=== PATIENT | male | born 1945 | race Caucasian/White ===

== ENCOUNTER → 2017-09-19 | Day surgery (SDC) | payer OTHER ==
[2017-09-18 12:26] LABS: BASOPHILS # (AUTO) 0.1 (0.0-0.1); BASOPHILS % 0.8 % (0.0-1.0); EOSINOPHILS # (AUTO) 0.2 (0.0-0.4); EOSINOPHILS % 3.7 % (0.0-6.0); HEMATOCRIT 38.9 % (38.2-49.6); HEMOGLOBIN 13.3 g/dL (14.0-18.0); LYMPHOCYTES # (AUTO) 1.2 (1.0-3.2); LYMPHOCYTES % 19.5 % (18.0-39.1); MEAN CORPUSCULAR HEMOGLOBIN 30.7 pg (28-32); MEAN CORPUSCULAR HGB CONC 34.2 g/dL (31-35); MEAN CORPUSCULAR VOLUME 89.8 fL (81-99); MONOCYTES # (AUTO) 0.6 (0.2-0.8); MONOCYTES % 9.5 % (4.4-11.3); NEUTROPHILS # (AUTO) 3.9 (2.1-6.9); NEUTROPHILS % 66.2 % (38.7-80.0); PLATELET COUNT 189 x10e3/uL (140-360); RED BLOOD COUNT 4.33 x10e6/uL (4.3-5.7)
[2017-09-18 12:29] LABS: INR 0.96; PROTHROMBIN TIME 13.3 seconds (11.9-14.5)
[2017-09-18 12:44] LABS: ALBUMIN 3.8 g/dL (3.5-5.0); ALBUMIN/GLOBULIN RATIO 1.1 (0.8-2.0); ANION GAP 11.7 mmol/L (8-16); CALCIUM 9.3 mg/dL (8.4-10.2); CHOL/HDL RATIO 3.5 (3.9-4.7); CREATININE, SERUM 1.23 mg/dL (0.72-1.25); POTASSIUM 3.7 mmol/L (3.5-5.1)
[~2017-09-19] VITALS: Ht 180.3 cm; Wt 152.4 kg
[~2017-09-19] MED LIST: ASPIRIN81 MG PO; ATORVASTATIN CA20 MG PO; DOXAZOSIN MESYLA4 MG PO; FELODIPINE ER5 MG PO; FENTANYL CITRATE/PF 100MCG/2 ML INJ ONE; HEPARIN SOD (PORCINE) 1000 UNIT/ML 30ML ONE; HEPARIN SOD/SOD CHLORIDE 2,000 ML ONE; HYDRALAZINE HCL25 MG PO; IOPAMIDOL 370 MG/ML 200 ML INFUS..BTL INJ ONE; LASIX20 MG PO; LIDOCAINE HCL 2% LOCAL 20 ML VIAL ONE; LISINOPRIL10 MG PO; MELOXICAM7.5 MG PO; METOPROLOL SUC100 MG PO; MIDAZOLAM HCL 2 MG/2 ML VIAL ONE; NITROGLYCERIN/D5W 200 MCG/ML 250 ML ONE; SODIUM CHLORIDE 0.9% 1000ML 1,000 ML ONE; VERAPAMIL HCL 2.5 MG/ML 2 ML VIAL ONE
--- NOTE | 2017-09-19 15:13 | Operative Report ---
DATE OF PROCEDURE: September 19, 2017 PROCEDURE INDICATION: Chest pain, dyspnea on exertion concerning for unstable angina pectoris CCS III, NYHA III, with new diagnosis of heart failure, LVEF 42% on abnormal stress test with apical ischemia and inferior nontransmural scar. PROCEDURE PERFORMED 1. Left heart catheterization. 2. Selective coronary angiography x2. 3. Right radial transradial band hemostasis. PROCEDURE COMPLICATIONS: None. ESTIMATED BLOOD LOSS: 5 mL. PROCEDURE SUMMARY: After consent was obtained, patient was prepped and draped in a sterile fashion, and the right radial site was locally infiltrated with 2% lidocaine. Access was obtained, and a 5-Algerian outer-diameter Slender sheath was advanced over a wire. Verapamil 2.5 mg, 300 mcg of nitroglycerin and 3000 units of heparin were administered IV. Cardiac catheterization was performed with a universal 5-Algerian TIG catheter advanced over a J wire. The following findings were noted: 1. LV pressure 152/14 with end-diastolic pressure of 23. 2. Aortic pressure was 150/82. 3. No left ventriculogram was performed. 4. Left main with luminal irregularities, large caliber, gives off an LAD and a circumflex. 5. The LAD, large in caliber, has mid 30% stenosis, distal 40% stenosis, and gives 2 diagonals and multiple septal perforators of small caliber as it courses to the apex where it wraps around and ends. 6. The circumflex has luminal irregularities within the vessel itself. It gives a 1st obtuse marginal of small caliber with 30% proximal stenosis and a 2nd obtuse marginal with luminal irregularities and a 3rd obtuse marginal with 40% tubular stenosis and 2 left posterolateral branches. 7. The right coronary artery is a dominant vessel, gives a conus branch proximally, 2 RV marginals in the midportion, in between which there is 40% stenosis of the RCA. Distal RCA has 30% stenosis. The terminal branches of the RCA are an RPDA of small caliber with 30% proximal stenosis and an RPLV with small caliber and luminal irregularities. CONCLUSION: Nonischemic cardiomyopathy, jeox-jx-[id number] multivessel coronary artery disease, mildly elevated left ventricular end-diastolic pressure with left ventricular pressures 152/14 with end-diastolic pressure of 23 and aortic pressure 150/82. RECOMMENDATIONS: Uptitrate diuretics in the clinic, gradually transition to highest possible tolerated dose of beta alejandra and MADELINE inhibitor, and adjust other blood pressure medications accordingly. Cardiac rehabilitations will be considered as outpatient and weight loss advised. Wean TR band. Discharge later today if no complications arise. Job#: [id number] DARLENE
== END | disposition home or self-care (01) ==
LOC: CATH LAB 08:35
PROVIDERS: ATTEND Internal Medicine Cardiovascular Disease
DX: I25.119 Atherosclerotic heart disease of native coronary artery with unspecified angina pectoris (principal); I42.8 Other cardiomyopathies; R94.39 Abnormal result of other cardiovascular function study; I10 Essential (primary) hypertension; G47.33 Obstructive sleep apnea (adult) (pediatric); E66.9 Obesity, unspecified; I89.0 Lymphedema, not elsewhere classified; Z01.810 Encounter for preprocedural cardiovascular examination; Z01.812 Encounter for preprocedural laboratory examination; Z68.42 Body mass index [BMI] 45.0-49.9, adult; Z87.891 Personal history of nicotine dependence; Z90.2 Acquired absence of lung [part of]
CPT/HCPCS: 36415; 80053; 80061; 85025; 85610; 93005; 93458; C1887; J1644; J2001; J2250; J7030; Q9967; 36140

== ENCOUNTER 2018-05-09 17:25 | Inpatient (IN) | payer MEDICARE, OTHER ==
[~2018-05-09] VITALS: Ht 180.3 cm; Wt 140.2 kg
[~2018-05-09 17:25] MED LIST changes: -FENTANYL CITRATE/PF 100MCG/2 ML INJ ONE; -HEPARIN SOD (PORCINE) 1000 UNIT/ML 30ML ONE; -HEPARIN SOD/SOD CHLORIDE 2,000 ML ONE; -IOPAMIDOL 370 MG/ML 200 ML INFUS..BTL INJ ONE; -LIDOCAINE HCL 2% LOCAL 20 ML VIAL ONE; -MIDAZOLAM HCL 2 MG/2 ML VIAL ONE; -NITROGLYCERIN/D5W 200 MCG/ML 250 ML ONE; -SODIUM CHLORIDE 0.9% 1000ML 1,000 ML ONE; -VERAPAMIL HCL 2.5 MG/ML 2 ML VIAL ONE
[2018-05-09 18:50] LABS: BASOPHILS # (AUTO) 0.1 (0.0-0.1); BASOPHILS % 0.7 % (0.0-1.0); EOSINOPHILS # (AUTO) 0.2 (0.0-0.4); EOSINOPHILS % 3.1 % (0.0-6.0); HEMATOCRIT 41.6 % (38.2-49.6); HEMOGLOBIN 14.4 g/dL (14.0-18.0); LYMPHOCYTES # (AUTO) 1.3 (1.0-3.2); LYMPHOCYTES % 17.9 % (18.0-39.1); MEAN CORPUSCULAR HEMOGLOBIN 30.8 pg (28-32); MEAN CORPUSCULAR HGB CONC 34.6 g/dL (31-35); MEAN CORPUSCULAR VOLUME 88.9 fL (81-99); MONOCYTES # (AUTO) 0.8 (0.2-0.8); NEUTROPHILS # (AUTO) 4.7 (2.1-6.9); PLATELET COUNT 202 x10e3/uL (140-360); RED BLOOD COUNT 4.68 x10e6/uL (4.3-5.7); RED CELL DISTRIBUTION WIDTH 13.6 % (11.7-14.4)
[2018-05-09 19:06] LABS: ALBUMIN 4.5 g/dL (3.5-5.0); ALBUMIN/GLOBULIN RATIO 1.2 (0.8-2.0); ANION GAP 19.1 mmol/L (8-16); CALCIUM 9.8 mg/dL (8.4-10.2); CREATININE, SERUM 3.32 mg/dL (0.72-1.25); POTASSIUM 4.1 mmol/L (3.5-5.1)
[2018-05-09 20:35] LABS: BILIRUBIN,URINE NEGATIVE (NEGATIVE); CLARITY,URINE CLEAR (CLEAR); COLOR,URINE YELLOW (YELLOW); KETONES,URINE NEGATIVE (NEGATIVE); LEUKOCYTE ESTERASE ,URINE NEGATIVE (NEGATIVE); NITRITE,URINE NEGATIVE (NEGATIVE); PROTEIN,URINE DIPSTICK NEGATIVE (NEGATIVE); URINE UROBILINOGEN 0.2 mg/dL (0.2 - 1)
[2018-05-09] MEDS ORDERED: SODIUM CHLORIDE 0.9% 1000ML 1,000 ML IV SCH (20:36)
--- NOTE | 2018-05-09 20:40 | Diagnostic Imaging Report ---
EXAMINATION: CHEST SINGLE (PORTABLE) INDICATION: H/O CHF, RENAL INSUFF DUE TO INCR DIURETIC COMPARISON: 07/24/2017. FINDINGS: TUBES and LINES: None. LUNGS: Mild prominence of the pulmonary vasculature with redistribution bilaterally. PLEURA: No pleural effusion or pneumothorax. HEART AND MEDIASTINUM: The cardiac silhouette is moderately enlarged. BONES AND SOFT TISSUES: No acute osseous lesion. UPPER ABDOMEN: No free air under the diaphragm. IMPRESSION: Mild bilateral pulmonary venous congestion. Signed by: Dr. Ruben Miramontes M.D. on 05/09/2018 8:36 PM
[2018-05-09 20:46] LABS: EPITHELIAL CELLS,URINE FEW /LPF; MUCUS,URINE MODERATE (RARE); RBC,URINE 0-5 /HPF (0-5)
[2018-05-09] MEDS ORDERED: SODIUM CHLORIDE 0.9% 1000ML 1,000 ML IV ONE (20:52)
[2018-05-09 22:00] VITALS: BP 138/77
[2018-05-09 22:15] VITALS: BP 138/77
[2018-05-09] MEDS ORDERED: METOLAZONE5 MG PO (22:54)
[2018-05-09] MEDS ORDERED: OXYBUTYNIN CHLOR5 MG PO (22:54)
[2018-05-09] MEDS ORDERED: SIMVASTATIN40 MG PO (22:54)
[2018-05-09] MEDS ORDERED: CARVEDILOL12.5 MG PO (22:54)
[2018-05-09] MEDS ORDERED: SPIRONOLACTONE25 MG PO (22:54)
[2018-05-10] VITALS (7 sets, daily range): BP systolic 122–170; BP diastolic 59–76
[2018-05-10 05:22] LABS: BASOPHILS % 0.5 % (0.0-1.0); EOSINOPHILS # (AUTO) 0.2 (0.0-0.4); EOSINOPHILS % 2.9 % (0.0-6.0); HEMATOCRIT 37.8 % (38.2-49.6); HEMOGLOBIN 12.9 g/dL (14.0-18.0); LYMPHOCYTES # (AUTO) 1.2 (1.0-3.2); LYMPHOCYTES % 17.8 % (18.0-39.1); MEAN CORPUSCULAR HEMOGLOBIN 30.3 pg (28-32); MEAN CORPUSCULAR HGB CONC 34.1 g/dL (31-35); MEAN CORPUSCULAR VOLUME 88.7 fL (81-99); MONOCYTES # (AUTO) 0.8 (0.2-0.8); MONOCYTES % 11.7 % (4.4-11.3); NEUTROPHILS # (AUTO) 4.4 (2.1-6.9); NEUTROPHILS % 66.8 % (38.7-80.0); PLATELET COUNT 163 x10e3/uL (140-360); RED BLOOD COUNT 4.26 x10e6/uL (4.3-5.7); RED CELL DISTRIBUTION WIDTH 13.4 % (11.7-14.4)
[2018-05-10 05:52] LABS: ANION GAP 17.4 mmol/L (8-16); CALCIUM 9.3 mg/dL (8.4-10.2); CREATININE, SERUM 2.75 mg/dL (0.72-1.25); POTASSIUM 3.4 mmol/L (3.5-5.1)
[2018-05-10] MEDS ORDERED: ACETAMINOPHEN 325 MG TAB PO PRN (08:15)
--- NOTE | 2018-05-10 08:48 | History and Physical ---
CHIEF COMPLAINT: Abnormal kidney blood test in PCP's, my office. HISTORY OF PRESENT ILLNESS: A 72-year-old pleasant white male with a past medical history of multiple medical problems was admitted at [facility] last night with the above complaints. The patient was seen in my office a couple of days back for hospital followup from [facility] for CHF exacerbation. When the patient came to my office, the patient was feeling generalized weakness, fatigue. Apparently, the patient was admitted at [facility] for dyspnea on exertion. The patient was diagnosed with CHF exacerbation. The patient was discharged from [facility] last week on Lasix 40 mg p.o. b.i.d., Aldactone 25 mg p.o. daily and metolazone 5 mg p.o. daily. I did routine blood tests in my office a couple of days back when the patient came for hospital followup. I got the blood test report yesterday, which showed the patient's creatinine was 2.3. The patient's baseline creatinine done last month in my office was 1.1. Hence, the patient was referred to [facility] for acute renal failure. In the emergency room, the patient was seen by emergency room doctor, Dr. Lepe, and the patient was admitted in the hospital for further workup and treatment. At present, the patient is laying comfortably in bed. No apparent distress. No chest pain. No shortness of breath. No nausea, vomiting or diarrhea. No abdominal pain, loss of consciousness or palpitations. No headaches. No hematemesis. No melena. No hematuria or dysuria. No fever. No cough. No witnessed seizures. PAST MEDICAL HISTORY 1. CHF/cardiomyopathy. Ejection fraction 40%. 2. Hypertension. 3. DJD. 4. Morbid obesity. 5. Obstructive sleep apnea. 6. Urinary incontinence. MEDICATIONS: As listed in chart. ALLERGIES: NO KNOWN DRUG ALLERGIES. SURGICAL HISTORY: Left lung lobectomy, appendectomy. PRIOR HOSPITALIZATIONS: [facility] from April 29, 2018, to May 01, 2018, for CHF exacerbation. SOCIAL HISTORY: No smoking. No alcohol. No illicit drug use. and lives with family. REVIEW OF SYSTEMS: As per HPI. PHYSICAL EXAM GENERAL: The patient is alert, awake and oriented times 3. No apparent distress. Lying in bed. VITALS: Temperature is 96, pulse is 57 per minute, respiratory rate 18 per minute, blood pressure is 164/76, and saturation is 94% on room air. GENERAL: No signs of icterus. No pallor. HEENT: Normocephalic and atraumatic. PERRLA. NECK: Soft and supple. No JVD, bruits or lymphadenopathy. LUNGS: Air entry bilaterally. Bibasilar occasional rales. HEART: S1 and S2 normal. No murmur or gallop. No rubs. ABDOMEN: Soft and nontender. Bowel sounds positive. PATIENT REGISTRATION MANAGER: Alert and oriented times 3. No focal deficit. EXTREMITIES: No cyanosis. No clubbing. Trace edema plus. LABS: On admission to the ER, white count 7, hemoglobin 14.4, hematocrit 41.6, and platelets 202,000. Sodium 139, potassium 4.1, chloride 101, bicarb 23, BUN 107, creatinine 3.32, glucose 108. LFTs noted. This morning sodium 142, potassium 3.4, chloride 104, bicarb 24, BUN 99, creatinine 2.75. White count 6.5, hemoglobin 12.9, hematocrit 37.8. Urine with wbcs 6-10, bacteria none. Chest x-ray shows mild bilateral pulmonary venous congestion. EKG shows sinus bradycardia with first-degree AV block with occasional PVCs. ASSESSMENT 1. Acute renal failure, likely prerenal azotemia due to multiple diuretics. 2. Congestive heart failure and cardiomyopathy. 3. History of hypertension. 4. Degenerative joint disease. 5. Morbid obesity. 6. Obstructive sleep apnea. PLAN: Admit the patient to med/tele. Hold all diuretics. Cautious IV hydration with normal saline at 75 mL an hour. Serial lytes. Check ultrasound of renal. Renal consultation with Dr. Hyde. Cardiology consultation with Dr. Sandy Day. Will get 2-D echo to check heart status. Will continue the patient's home medications of carvedilol 12.5 mg p.o. b.i.d., hydralazine 25 mg p.o. q.8 h., Lipitor 20 mg p.o. at bedtime, aspirin 81 mg p.o. daily. DVT and stress prophylaxis. Further care and treatment while the patient is in the hospital. Prognosis and condition guarded. Discussed with the patient in detail. Job#: [id number] LICHA
[2018-05-10] MEDS ORDERED: CARVEDILOL 12.5 MG TAB PO SCH (09:00)
[2018-05-10] MEDS: ASPIRIN 81 MG CHEW TAB PO SCH (09:06)
[2018-05-10] MEDS: HEPARIN SOD (PORCINE) 5,000 UNIT/ML VIAL SC SCH ×2 (09:07→21:00)
[2018-05-10] MEDS: OXYBUTYNIN CHLORIDE 5 MG TAB PO SCH ×2 (09:07→17:00)
[2018-05-10] MEDS: CARVEDILOL 3.125 MG TAB PO SCH ×2 (09:08→17:00)
--- NOTE | 2018-05-10 11:24 | Diagnostic Imaging Report ---
PROCEDURE:US RETROPERITONEAL ( KIDNEY ). COMPARISON:None. INDICATIONS:Renal Failure TECHNIQUE: Clemens-scale and color sonographic images of the bilateral kidneys and bladder where obtained in transverse and longitudinal planes. FINDINGS: Exam limited by patient's body habitus. RIGHT KIDNEY: Measures 13.3 cm in length, cortex 2 cm Cysts: Simple right sided renal cysts, measuring up to 3.4 cm in the inferior pole medially and 4.9 cm in the inferior pole laterally. Solid masses: No Stones: No Hydronephrosis: No Echogenicity: Normal LEFT KIDNEY: Measures 14.5 cm in length, cortex 1.5 cm. Cysts: Simple appearing left sided renal cysts measuring up to 1.3 cm in the inferior pole and 2.4 cm in the superior pole. Solid masses: No Stones: An 8 mm echogenic focus is present in the left kidney cortex without shadowing Hydronephrosis: No Echogenicity: Normal Bladder: Bilateral ureteral jets are present. CONCLUSION: Mildly enlarged bilateral kidneys. Normal renal echogenicity. No evidence of hydronephrosis or solid mass. An 8 mm left sided renal stone without evidence of obstruction. Dictated by: MARY PEACOCK M.D. on 05/10/2018 at 8:31 Electronically approved by: MARY PEACOCK M.D. on 05/10/2018 at 8:31
--- NOTE | 2018-05-10 13:25 | Consultation ---
DATE OF CONSULTATION: May 10, 2018 CARDIOLOGY CONSULTATION REQUESTING PHYSICIAN: Dr. Jarek Tinsley. REASON FOR CONSULTATION: Congestive heart failure. HISTORY OF PRESENT ILLNESS: This is a 72-year-old man with a history of chronic systolic heart failure (EF 40%), nonobstructive coronary artery disease, hypertension, morbid obesity and RADHA, who was sent to the ER for admission with acute renal failure. The patient had recently been admitted to [facility] last week due to progressively worsening exercise tolerance. He was diagnosed with CHF exacerbation and discharged on Lasix 40 mg p.o. b.i.d., Aldactone 25 mg p.o. daily and metolazone 5 mg p.o. daily. The patient followed up with his primary MD, Dr. Tinsley, and labs were performed which revealed a creatinine of 2.3. He was subsequently sent to the hospital for acute renal failure. The patient denies any chest pain, orthopnea or PND. He does note lower extremity edema that is improved and progressively worsening exercise tolerance now that he is significantly limited by walking to the restroom at home. REVIEW OF SYSTEMS: Negative except as per HPI. PAST MEDICAL HISTORY 1. Chronic systolic heart failure, nonischemic with ejection fraction 40%. 2. Nonobstructive CAD. 3. Hypertension. 4. Morbid obesity. 5. RADHA. PAST SURGICAL HISTORY 1. Appendectomy. 2. Hernia surgery. 3. Left lobectomy. ALLERGIES: PLEASE SEE EMR. MEDICATIONS: Please see medication list. SOCIAL HISTORY: No tobacco, alcohol or illicit drugs. FAMILY HISTORY: Noncontributory. PHYSICAL EXAMINATION VITAL SIGNS: Temperature 95.9 degrees, pulse 57, respiratory rate 19, blood pressure 170/75, oxygen saturation 95% on room air. GENERAL: A morbidly obese gentleman in no acute distress. Well developed and well nourished. HEENT: Normocephalic, atraumatic. Pupils equal, no scleral icterus. NECK: Supple. No thyromegaly or cervical lymphadenopathy, no carotid bruits. LUNGS: Clear to auscultation bilaterally. No wheezes or crackles. CARDIOVASCULAR: Normal rate, regular rhythm. No murmur. Normal S1 and S2. ABDOMEN: Soft, nontender. EXTREMITIES: 1+ pitting edema. NEURO: Nonfocal exam. LABS: WBC 6.58, hemoglobin 12.9, hematocrit 37.8, platelets 163. Sodium 142, potassium 3.4, chloride 104, CO2 24, BUN 99, creatinine 2.75. ELECTROCARDIOGRAM: Sinus bradycardia with 1st-degree AV block and PVCs. Incomplete left bundle branch block. CHEST X-RAY: Mild bilateral pulmonary venous congestion. IMPRESSION 1. Acute renal failure. 2. Fszox-zc-deljoot systolic heart failure. 3. Nonobstructive coronary artery disease. 4. Hypertension. 5. Morbid obesity. 6. Obstructive sleep apnea. RECOMMENDATIONS: Agree with holding all diuretics. Suspect this is intravascular volume depletion due to Lasix, spironolactone and metolazone. He will likely need to resume diuretics upon discharge at a lower dose with gentle diuresis as an outpatient. Further evaluation of acute renal failure per Nephrology. Obtain echocardiogram. Patient states he had one recently performed at Dr. Tinsley's office. Obtain records from [facility]. Continue current cardiac medications otherwise. Monitor the patient on telemetry. Thank you for this consult. We will continue to follow. Job#: [id number] DARLENE
[2018-05-10] MEDS: HYDRALAZINE HCL 25 MG TAB PO SCH ×2 (14:00→22:00)
--- NOTE | 2018-05-10 14:27 | Consultation ---
DATE OF CONSULTATION: May 10, 2018 HISTORY OF PRESENT ILLNESS: A 72-year-old white gentleman with recent hospitalization at [facility] for apparent congestive heart failure. Patient has an existing history of congestive heart failure. Denies any history of AK or CVA. Had remote history of kidney stone, passed the stones, never recurred. Denies prostate enlargement. Prior history of appendectomy and hernia surgery. He has a history of hypertension. No history of diabetes. Denies history of CVA, malignancy, or AK. Has been maintained on doxazosin, carvedilol, furosemide, lisinopril, meloxicam, metolazone, metoprolol, oxybutynin, simvastatin, and Aldactone at home. Currently lying supine, completely asymptomatic. Denies any shortness of breath, nausea, vomiting, headache, fever, chills, chest pains, or shortness of breath. CURRENT MEDICATIONS 1. Ditropan 5 mg p.o. b.i.d. 2. Protonix 40 mg at bedtime. 3. Carvedilol 12.5 mg p.o. b.i.d. 4. Atorvastatin 20 mg at bedtime. 5. Aspirin 81 mg daily. SOCIAL HISTORY: Patient does not smoke or drink. Denies taking any vlmn-nuh-[id number] pain medication or analgesics. A kidney ultrasound has been done, official report pending. PHYSICAL EXAMINATION GENERAL: Patient awake, alert, lying supine. No apparent distress. VITAL SIGNS: Blood pressure of 170/75, pulse rate 80. HEAD AND NECK: Corneae clear. Mucosa dry. Neck veins flat. LUNGS: Relatively clear. HEART: S1, S2 audible. ABDOMEN: Soft, nontender. EXTREMITIES: Lower extremities, no edema. LABORATORY DATA: Shows white count 6.5, hemoglobin 12.9. Sodium 142, potassium 3.4, bicarbonate 24, BUN 99, and creatinine 2.75. Total protein 8.3, globulin 3.8, albumin 4.5, calcium 9.8. Initial urinalysis shows pH 5, specific gravity 1.010, dipstick negative protein, and blood, 0-5 rbc's and 6-10 wbc's. IMPRESSION AND PLAN: Acute kidney injury, possibly acute tubular necrosis. Most likely has been on aggressive diuretics as well as MADELINE inhibitors. We need to discontinue all those medications. Agree with gentle hydration. Await kidney ultrasound. Obtain spot urine protein/creatinine ratio. Repeat urinalysis and followup on the elevated globulin. Await echocardiogram. Discussed with patient. All questions answered. Job#: [id number] DERRICK
[2018-05-10 16:01] LABS: CLARITY,URINE CLEAR (CLEAR); COLOR,URINE YELLOW (YELLOW); LEUKOCYTE ESTERASE ,URINE NEGATIVE (NEGATIVE); NITRITE,URINE NEGATIVE (NEGATIVE); PROTEIN,URINE DIPSTICK NEGATIVE (NEGATIVE)
[2018-05-10 16:02] LABS: BILIRUBIN,URINE NEGATIVE (NEGATIVE); KETONES,URINE NEGATIVE (NEGATIVE); URINE UROBILINOGEN 0.2 mg/dL (0.2 - 1)
[2018-05-10 16:11] LABS: EPITHELIAL CELLS,URINE RARE /LPF
[2018-05-10 16:12] LABS: HYALINE CASTS 0-1 (0-1)
[2018-05-10 16:27] LABS: CREATININE,URINE RANDOM 63.35 mg/dL (63-166); TOTAL PROTEIN, URINE 13.9 mg/dL (1-14)
[2018-05-10] MEDS: ATORVASTATIN 20 MG TAB PO SCH (21:00)
[2018-05-11] VITALS (8 sets, daily range): BP systolic 147–174; BP diastolic 66–82
[2018-05-11 00:46] LABS: TOTAL VOLUME, URINE 2950 ml/24hr (800-2000)
[2018-05-11 02:16] LABS: SODIUM,URINE 71 mmol/L
[2018-05-11] MEDS: HYDRALAZINE HCL 25 MG TAB PO SCH ×3 (06:00→21:10)
[2018-05-11 06:05] LABS: ALBUMIN 3.8 g/dL (3.5-5.0); ALBUMIN/GLOBULIN RATIO 1.3 (0.8-2.0); ANION GAP 15.4 mmol/L (8-16); CALCIUM 9.3 mg/dL (8.4-10.2); CREATININE, SERUM 2.28 mg/dL (0.72-1.25); POTASSIUM 3.4 mmol/L (3.5-5.1)
[2018-05-11] MEDS: PANTOPRAZOLE SOD 40 MG TABEC PO SCH (07:35)
[2018-05-11] MEDS: ASPIRIN 81 MG CHEW TAB PO SCH (08:34)
[2018-05-11] MEDS: CARVEDILOL 3.125 MG TAB PO SCH ×2 (08:34→17:41)
[2018-05-11] MEDS: HEPARIN SOD (PORCINE) 5,000 UNIT/ML VIAL SC SCH ×2 (08:35→21:09)
[2018-05-11] MEDS: OXYBUTYNIN CHLORIDE 5 MG TAB PO SCH ×2 (08:35→17:41)
[2018-05-11] MEDS ORDERED: POTASSIUM CHLORIDE 20 MEQ TAB CR PO NR (09:30)
[2018-05-11] MEDS: ALLOPURINOL 300 MG TAB PO SCH (10:06)
--- NOTE | 2018-05-11 16:59 | Progress Note ---
DATE: CARDIOLOGY PROGRESS NOTE SUBJECTIVE: Patient states he feels a lot better. He denies any shortness of breath or chest pain. Endorses some fatigue. OBJECTIVE VITAL SIGNS: Temperature 97, pulse 58, respiratory rate 18, blood pressure 152/66, oxygen saturation 96% on room air. CARDIOVASCULAR MEDICATIONS 1. Coreg 6.25 mg p.o. b.i.d. 2. Aspirin 81 p.o. daily. 3. Hydralazine 25 mg p.o. q.8 h. 4. Atorvastatin 20 p.o. at night. 5. Potassium chloride 40 mEq p.o. now. LABS: WBC 6.58, hemoglobin 12.9, hematocrit 37.8, and platelets 167,000. Sodium 141, potassium 3.4, creatinine 2.28. GFR 29. Renal ultrasound from this morning with mild enlarged bilateral kidneys. Normal renal echogenicity. No evidence of hydronephrosis or solid mass. An 8 mm left-sided renal stone without evidence of obstruction was noted. PHYSICAL EXAMINATION GENERAL: Alert and oriented times 3. Resting comfortably in bed. Does not appear to be in any acute distress. LUNGS: Clear to auscultation throughout. No wheezing. No rhonchi or crackles. CARDIOVASCULAR: Distant heart sounds. Normal rate and rhythm. No murmurs. No gallops auscultated. ABDOMEN: Round, soft and nontender. EXTREMITIES: Lower extremities with trace edema bilaterally with discoloration. NEURO: Nonfocal exam. IMPRESSION 1. Acute renal failure. 2. Acute-[id number] systolic heart failure. 3. Nonobstructive coronary artery disease. 4. Hypertension. 5. Morbid obesity. 6. Obstructive sleep apnea. PLAN: Continue to hold diuretics for now. We suspect that this is intravascular volume depletion due to Lasix, spironolactone and metolazone, which she was previously on. Resume diuretics upon discharge at lower dose. Continue acute renal failure evaluation per nephrology. Echocardiogram obtained. Awaiting review. Recommendations will follow. Continue the above list of cardiac medications otherwise. Monitor renal function very closely. Job#: [id number] DC
[2018-05-11] MEDS: ATORVASTATIN 20 MG TAB PO SCH (21:09)
[2018-05-12] VITALS (8 sets, daily range): BP systolic 120–162; BP diastolic 65–82
[2018-05-12 05:21] LABS: BASOPHILS % 0.6 % (0.0-1.0); EOSINOPHILS # (AUTO) 0.3 (0.0-0.4); EOSINOPHILS % 4.9 % (0.0-6.0); HEMATOCRIT 38.6 % (38.2-49.6); LYMPHOCYTES # (AUTO) 1.3 (1.0-3.2); LYMPHOCYTES % 25.4 % (18.0-39.1); MEAN CORPUSCULAR HEMOGLOBIN 29.9 pg (28-32); MEAN CORPUSCULAR HGB CONC 33.7 g/dL (31-35); MEAN CORPUSCULAR VOLUME 88.7 fL (81-99); MONOCYTES # (AUTO) 0.5 (0.2-0.8); MONOCYTES % 10.5 % (4.4-11.3); NEUTROPHILS % 58.4 % (38.7-80.0); PLATELET COUNT 154 x10e3/uL (140-360); RED BLOOD COUNT 4.35 x10e6/uL (4.3-5.7); RED CELL DISTRIBUTION WIDTH 13.2 % (11.7-14.4)
[2018-05-12 05:42] LABS: ALBUMIN 3.9 g/dL (3.5-5.0); ALBUMIN/GLOBULIN RATIO 1.2 (0.8-2.0); ANION GAP 15.8 mmol/L (8-16); CALCIUM 9.6 mg/dL (8.4-10.2); CREATININE, SERUM 2.11 mg/dL (0.72-1.25); POTASSIUM 3.8 mmol/L (3.5-5.1)
[2018-05-12] MEDS: HYDRALAZINE HCL 25 MG TAB PO SCH ×3 (05:53→21:48)
[2018-05-12] MEDS: PANTOPRAZOLE SOD 40 MG TABEC PO SCH (09:30)
[2018-05-12] MEDS: ASPIRIN 81 MG CHEW TAB PO SCH (09:31)
[2018-05-12] MEDS: CARVEDILOL 3.125 MG TAB PO SCH ×2 (09:31→17:53)
[2018-05-12] MEDS: OXYBUTYNIN CHLORIDE 5 MG TAB PO SCH ×2 (09:31→17:53)
[2018-05-12] MEDS: HEPARIN SOD (PORCINE) 5,000 UNIT/ML VIAL SC SCH ×2 (09:31→21:48)
[2018-05-12] MEDS: ALLOPURINOL 300 MG TAB PO SCH (09:31)
--- NOTE | 2018-05-12 12:19 | Progress Note ---
DATE: CARDIOLOGY PROGRESS NOTE SUBJECTIVE: The patient is without any complaints this morning. He denies any chest pain or shortness of breath. He does report some leg pain last night. Otherwise, no other complaints. OBJECTIVE VITAL SIGNS: Temperature 97, pulse 55, respiratory rate 14, blood pressure 120/65, oxygen saturation 96% on room air. CARDIOVASCULAR 1. Coreg 6.25 mg p.o. b.i.d. 2. Aspirin 81 p.o. daily. 3. Hydralazine 25 q.8 h. p.o. 4. Atorvastatin 20 p.o. at night. LABS: WBC 5.12, hemoglobin 13, hematocrit 38.6, and platelets 154,000. Sodium 141, potassium 3.8, BUN 71, creatinine 2.21, glucose 104. AST 28 and ALT 37. PHYSICAL EXAMINATION GENERAL: Alert and oriented times 3. Resting comfortably in bed. Does not appear to be in any acute distress at this time. LUNGS: Clear to auscultation throughout. No wheezing. No rhonchi or crackles. CARDIOVASCULAR: Regular rate and rhythm. Distant heart sounds. Systolic murmur noted. A S4 noted. Normal S1 and S2. ABDOMEN: Rounded, soft and nontender. EXTREMITIES: Trace edema bilaterally with discoloration noted. NEURO: Nonfocal exam. IMPRESSION 1. Acute renal failure. 2. Tnpvn-vn-vlwjzri systolic heart failure. 3. Nonobstructive coronary artery disease. 4. Hypertension. 5. Morbid obesity. 6. Obstructive sleep apnea. RECOMMENDATIONS: Continue with the above cardiac medications. The patient off diuretics at this time. Monitor renal function. Dr. Hyde managing as drug abuse program coordinator. Consider low-dose diuretic once renal function improves. Continue to monitor renal function very closely. Echocardiogram obtained with moderate left ventricular hypertrophy noted and left ventricular ejection fraction calculated at 49%. DICTATED BY VIOLETTA ANDINO NP Job#: [id number] CT
[2018-05-12] MEDS: ATORVASTATIN 20 MG TAB PO SCH (21:48)
[2018-05-13 00:08] VITALS: BP 128/59
[2018-05-13 05:17] VITALS: BP 144/69
[2018-05-13] MEDS: HYDRALAZINE HCL 25 MG TAB PO SCH ×2 (06:03→13:53)
[2018-05-13 06:15] LABS: ANION GAP 14.8 mmol/L (8-16); CALCIUM 9.4 mg/dL (8.4-10.2); CREATININE, SERUM 1.9 mg/dL (0.72-1.25); POTASSIUM 3.8 mmol/L (3.5-5.1)
[2018-05-13 07:52] VITALS: BP 160/78
[2018-05-13] MEDS: ASPIRIN 81 MG CHEW TAB PO SCH (08:57)
[2018-05-13] MEDS: PANTOPRAZOLE SOD 40 MG TABEC PO SCH (08:57)
[2018-05-13] MEDS: CARVEDILOL 3.125 MG TAB PO SCH ×2 (08:57→16:22)
[2018-05-13] MEDS: HEPARIN SOD (PORCINE) 5,000 UNIT/ML VIAL SC SCH (08:58)
[2018-05-13] MEDS: OXYBUTYNIN CHLORIDE 5 MG TAB PO SCH ×2 (08:58→16:22)
[2018-05-13] MEDS: ALLOPURINOL 300 MG TAB PO SCH (08:58)
[2018-05-13] MEDS ORDERED: ALLOPURINOL300 MG PO (11:03)
[2018-05-13 16:00] VITALS: BP 169/85
--- NOTE | 2018-05-13 19:14 | Progress Note ---
DATE: May 13, 2018 CARDIOLOGY PROGRESS NOTE SUBJECTIVE: No major events overnight. Feels much better now. No complaints. REVIEW OF SYSTEMS: As above, otherwise negative. OBJECTIVE VITAL SIGNS: Temperature 96.5, pulse 60, respiratory rate 18, blood pressure 147/70, satting 96% on room air. GENERAL: Well-developed, well-nourished, obese white male. CARDIOVASCULAR: Difficult exam due to body habitus. PMI could not be palpated. Normal S1, S2. No murmurs, rubs or gallops. Palpable carotid pulses. Palpable radial pulses. Palpable pedal pulses. Chronic venostasis changes bilateral lower extremities. Only trace edema. RESPIRATORY: No respiratory distress. Lungs are clear to auscultation bilaterally. ABDOMEN: Obese, soft, nontender. No masses. NEURO AND PSYCH: Alert and oriented to person, place and time. Normal affect. LABORATORY DATA: Reviewed. Creatinine continues to improve, though it is still elevated at 1.9. CARDIOVASCULAR MEDICATIONS: Reviewed. TELEMETRY DATA: Reviewed. Normal sinus rhythm. ASSESSMENT AND PLAN 1. Ejuap-gp-qslznkv systolic heart failure. 2. Morbid obesity. 3. Acute renal failure. 4. Hypertension. 5. Obstructive sleep apnea. 6. Nonobstructive coronary artery disease. RECOMMENDATIONS: The patient is okay to be discharged from cardiovascular standpoint. Recommend continuing his current regimen of carvedilol 6.25 mg b.i.d., aspirin 81 mg daily, atorvastatin and hydralazine 50 mg q.8 h. He has a followup appointment in clinic with Dr. Sandy Day tomorrow morning. Will continue to hold diuretics for now given that creatinine has still not returned to normal. This will be adjusted as an outpatient by Dr. Day. Thank you for this consult. Job#: [id number]
== END 2018-05-13 19:00 | disposition home or self-care (01) | DRG 682 ==
LOC: ER 17:25 → ERHOLD 21:06 → IMCU 22:08 → OBSVTOIN 05-12 14:35 → MED/SURG 05-12 16:29
PROVIDERS: ADMIT Internal Medicine; ATTEND Internal Medicine
DX: N17.0 Acute kidney failure with tubular necrosis (principal); I50.23 Acute on chronic systolic (congestive) heart failure; I13.0 Hypertensive heart and chronic kidney disease with heart failure and stage 1 through stage 4 chronic kidney disease, or unspecified chronic kidney disease; Z68.41 Body mass index [BMI] 40.0-44.9, adult; N18.3 Chronic kidney disease, stage 3 (moderate); I25.10 Atherosclerotic heart disease of native coronary artery without angina pectoris; E66.01 Morbid (severe) obesity due to excess calories; G47.33 Obstructive sleep apnea (adult) (pediatric); M19.90 Unspecified osteoarthritis, unspecified site; E79.0 Hyperuricemia without signs of inflammatory arthritis and tophaceous disease; N20.0 Calculus of kidney; Z79.82 Long term (current) use of aspirin; R00.1 Bradycardia, unspecified; I44.0 Atrioventricular block, first degree; I49.3 Ventricular premature depolarization; I45.10 Unspecified right bundle-branch block
CPT/HCPCS: 36415; 71045; 76770; 80048; 80053; 81001; 81050; 82570; 83970; 84156; 84300; 84550; 85025; 87086; 93005; 93306; 96360; 99284; G0378; J1644; J7030